=== PATIENT | female | born 1970 | race Caucasian/White ===

== ENCOUNTER 2017-07-30 16:43 | Emergency (ER) | payer BC ==
[2017-07-30 17:05] VITALS: BMI 24.1
[2017-07-30] MEDS ORDERED: ONDANSETRON 4 MG/2 ML VIAL IVPUSH ONE (17:06)
[2017-07-30] MEDS ORDERED: SODIUM CHLORIDE 1,000 ML IV STA (17:06)
--- NOTE | 2017-07-30 17:07 | PDOC ---
Rapid Medical Evaluation Time Seen by Provider: 07/30/17 16:44 Medical Evaluation: Allergies Allergy/AdvReac Type Severity Reaction Status Date / Time No Known Drug Allergies Allergy Verified 08/29/14 06:33 07/30/17 17:00 The patient presents with a chief complaint of: Stomach pain since April. Worsening over the past three months. C/o LUQ pain and today feels like burning up the throat and reports nausea. Took pantoprazole this morning. No vomiting today. Saw Dr. Pike yesterday, has planned endoscopy. I have performed a brief in-person evaluation of this patient; Pertinent physical exam findings: Epigastric pain, Tachycardia to 108. I have ordered the following: CBC, CMP, Lipase, Pt/INR, UA, urine preg. IVF, Zofran The patient will proceed to the ED for further evaluation. Discharge Disposition - Discharge Dispostion Last Admission D/C Date: 08/31/14 - Referrals Referrals: STAFF,NOT ON [Primary Care Provider] - - Patient Instructions - Post Discharge Activity
--- NOTE | 2017-07-30 17:09 | PDOC ---
History of Present Illness - General History Source: Patient Exam Limitations: No Limitations - History of Present Illness Initial Comments: 07/30/17 17:32 The patient is a 47 year old female with history of GERD who presents to the ED complaining of approximately approximately 2.5 months of ongoing epigastric pain , burning in nature, with radiation up the sternum with associated nausea. She states she has been seeing her PCP and GI for this pain and taking Protonix. Today, she took her Protonix this morning. She ate eggs for breakfast and subsequently noticed worsening of her pain throughout the day with associated nausea. No vomiting or diarrhea. No melena or hematochezia. No fever or chills. <Anali Ramires - Last Filed: 07/30/17 17:32> <Yenifer Glass - Last Filed: 07/30/17 18:43> - General Chief Complaint: Pain Stated Complaint: STOMACH PAIN Time Seen by Provider: 07/30/17 16:44 Past History <Anali Ramires - Last Filed: 07/30/17 17:32> - Past Medical History Anemia: No Asthma: No Cancer: No Cardiac Disorders: No CVA: No COPD: No CHF: No Dementia: No Diabetes: No GI Disorders: Yes (ACID REFLUX) Disorders: No HTN: No Hypercholesterolemia: No Liver Disease: No Seizures: No Thyroid Disease: No Other medical history: osteopenia - Surgical History Abdominal Surgery: No Appendectomy: No Cardiac Surgery: No Cholecystectomy: No Lung Surgery: No Neurologic Surgery: No Orthopedic Surgery: No - Suicide/Smoking/Psychosocial Hx Smoking History: Never smoked Have you smoked in the past 12 months: No Information on smoking cessation initiated: No Hx Alcohol Use: No Drug/Substance Use Hx: No Substance Use Type: None Hx Substance Use Treatment: No <Yenifer Glass - Last Filed: 07/30/17 18:43> - Past Medical History Allergies/Adverse Reactions: Allergies Allergy/AdvReac Type Severity Reaction Status Date / Time No Known Drug Allergies Allergy Verified 07/30/17 17:00 Home Medications: Ambulatory Orders Ibuprofen/Pseudoephedrine HCl [Advil Cold & Sinus Caplet] 1 each PO PRN Sucralfate [Carafate -] 1 gm PO QID #28 tablet 07/30/17 Review of Systems - Review of Systems Able to Perform ROS?: Yes Comments:: 07/30/17 17:35 GENERAL/CONSTITUTIONAL: No fever or chills. No weakness. HEAD, EYES, EARS, NOSE AND THROAT: No change in vision. No ear pain or discharge. No sore throat. GASTROINTESTINAL: +Epigastric pain, nausea. No vomiting, diarrhea or constipation. GENITOURINARY: No dysuria, frequency, or change in urination. CARDIOVASCULAR: No chest pain or shortness of breath. RESPIRATORY: No cough, wheezing, or hemoptysis. MUSCULOSKELETAL: No joint or muscle swelling or pain. No neck or back pain. SKIN: No rash NEUROLOGIC: No headache, vertigo, loss of consciousness, or change in strength/ sensation. ENDOCRINE: No increased thirst. No abnormal weight change. HEMATOLOGIC/LYMPHATIC: No anemia, easy bleeding, or history of blood clots. ALLERGIC/IMMUNOLOGIC: No hives or skin allergy. <Anali Ramires - Last Filed: 07/30/17 17:32> *Physical Exam - Vital Signs Last Vital Signs Temp Pulse Resp BP Pulse Ox 97.1 F L 106 H 18 114/70 100 07/30/17 17:01 07/30/17 17:01 07/30/17 17:01 07/30/17 17:01 07/30/17 17:01 - Physical Exam Comments: 07/30/17 17:36 Constitutional: Awake, alert, oriented. No acute distress. Head: Normocephalic. Atraumatic Eyes: PERRL. EOMI. Conjunctivae are not pale. ENT: Mucous membranes are moist and intact. Posterior pharynx without exudates or erythema. Uvula midline. Neck: Supple. Full ROM. No lymphadenopathy. Cardiovascular: Regular rate. Regular rhythm. S1, S2 regular. Distal pulses are 2+ and symmetric. Pulmonary/Chest: No evidence of respiratory distress. Clear to auscultation bilaterally No wheezing, rales or rhonchi. Abdominal: +Mild epigastric and RUQ pain. Negatibe Cardoza's. Soft and non- distended. No rebound, guarding or rigidity. No organomegaly. No palpable masses. Good bowel sounds. Back: No CVA tenderness. Musculoskeletal: No edema. No cyanosis. No clubbing. Full range of motion in all extremities. Nocalf tenderness. Radial/pedal pulses are intact and 2+ bilaterally Skin: Skin is warm and dry. No petechiae. No purpura. Neurological: Alert and oriented to person, place, and time. Cranial nerves II -XII are grossly intact. Normal speech. Strength is grossly symmetric. No sensory deficits. Psychiatric: Good eye contact. Normal interaction, affect and behavior. <Anali Ramires - Last Filed: 07/30/17 17:32> - Vital Signs Last Vital Signs Temp Pulse Resp BP Pulse Ox 97.1 F L 106 H 18 114/70 100 07/30/17 17:01 07/30/17 17:01 07/30/17 17:01 07/30/17 17:01 07/30/17 17:01 <Yenifer Glass - Last Filed: 07/30/17 18:43> ED Treatment Course - LABORATORY CBC & Chemistry Diagram: 07/30/17 17:18 07/30/17 17:18 <Anali Ramires - Last Filed: 07/30/17 17:32> - LABORATORY CBC & Chemistry Diagram: 07/30/17 17:18 07/30/17 17:18 <Yenifer Glass - Last Filed: 07/30/17 18:43> Medical Decision Making - Medical Decision Making 07/30/17 17:44 47yo female with 3m hx of epigastric abd pain -scheduled for EGD - on Aug [address] Pike -will check labs, RUQ u/s -suspect PUD vs gastritis vs gallstones vs pancreatitis -will give ivf hydration, gi cocktail, zofran -will monitor and reassess -pt is nontoxic in appearance 07/30/17 18:39 pt feeling much better pain improved stable for d/c to home will start carafate recommended dietary changes and pt is scheduled for egd on 08/12 <Yenifer Glass - Last Filed: 07/30/17 18:43> *DC/Admit/Observation/Transfer - Attestations Scribe Attestion: 07/30/17 17:37 Documentation prepared by Anali Ramires, acting as infertility medical assistant for Yenifer Glass DO. <Anali Ramires - Last Filed: 07/30/17 17:32> - Discharge Dispostion Admit: No - Attestations Physician Attestion: 07/30/17 18:43 I, Dr. Yenifer Glass, DO, attest that this document has been prepared under my direction and personally reviewed by me in its entirety. I further attest, that it accurately reflects all work, treatment, procedures and medical decision -making performed by me. <Yenifer Glass - Last Filed: 07/30/17 18:43> Diagnosis at time of Disposition: Epigastric pain - Discharge Dispostion Disposition: HOME Condition at time of disposition: Stable - Prescriptions Prescriptions: Sucralfate [Carafate -] 1 gm PO QID #28 tablet - Referrals Referrals: STAFF,NOT ON [Primary Care Provider] - - Patient Instructions Printed Discharge Instructions: DI for Epigastric Pain Additional Instructions: Please take all meds as prescribed. Please keep your appointment for your EGD as scheduled. Please return to the ED with any further complaints. Please also follow up with your PMD. - Post Discharge Activity
[2017-07-30] MEDS ORDERED: ONDANSETRON 4 MG/2 ML VIAL ONE (17:30)
[2017-07-30 17:32] LABS: BASO % 0.3 % (0-2.0); EOS % 0.4 % (0-4.5); HEMATOCRIT 42.6 % (32.4-45.2); HEMOGLOBIN 14.1 GM/dL (10.7-15.3); LYMPH % 7.4 % (8-40); MCH 26.9 pg (25.7-33.7); MEAN CELL VOLUME 81.6 fl (80-96); MEAN PLT VOLUME 7.7 fl (7.5-11.1); MONO % 5.4 % (3.8-10.2); NEUT % 86.5 % (42.8-82.8); PLATELET COUNT 291 K/MM3 (134-434); RBC 5.22 M/mm3 (3.60-5.2); RDW 13.7 % (11.6-15.6); WHITE BLOOD COUNT 8.5 K/mm3 (4.0-10.0)
[2017-07-30] MEDS ORDERED: MAG HYDROX/AL HYDROX/SIMETH 30 ML UNIT-DOSE CUP PO ONE (17:33)
[2017-07-30] MEDS ORDERED: LIDOCAINE VISCOUS 2% ORAL/TOP 20 ML UNIT-DOSE CUP MM ONE (17:33)
[2017-07-30] MEDS ORDERED: FAMOTIDINE 20 MG/50 ML IVPB 20 MG/50 ML MG IVPB ONE ×2 (17:33→17:39)
[2017-07-30] MEDS ORDERED: LIDOCAINE VISCOUS 2% ORAL/TOP 20 ML UNIT-DOSE CUP ONE (17:39)
[2017-07-30] MEDS ORDERED: MAG HYDROX/AL HYDROX/SIMETH 30 ML UNIT-DOSE CUP ONE (17:39)
[2017-07-30 17:46] LABS: INR 1.04 (0.82-1.09); PROTHROMBIN TIME (PATIENT) 11.7 SEC (9.98-11.88)
[2017-07-30 18:10] LABS: ALK PHOS 91 U/L (45-117); ANION GAP 11 (8-16); BILIRUBIN,TOTAL 0.6 mg/dL (0.2-1.0); BLOOD UREA NITROGEN 16 mg/dL (7-18); CALCIUM 8.9 mg/dL (8.5-10.1); CHLORIDE 104 mmol/L (98-107); CO2 24 mmol/L (21-32); CREATININE 0.6 mg/dL (0.55-1.02); GLUCOSE,RANDOM 85 mg/dL (74-106); SGOT/AST 19 U/L (15-37); SGPT/ALT 22 U/L (12-78); SODIUM 139 mmol/L (136-145); TOT PROT 7.7 g/dl (6.4-8.2)
[2017-07-30 18:43] VITALS: BP 123/62; PULSE 82; TEMP 98.6
== END 2017-07-30 18:49 | disposition home or self-care (01) ==
LOC: JER 16:43
PROC: 3E0337Z Introduction of Electrolytic and Water Balance Substance into Peripheral Vein, Percutaneous Approach (ICD-10-PCS; principal; 2017-07-30)
PROC: 3E033GC Introduction of Other Therapeutic Substance into Peripheral Vein, Percutaneous Approach (ICD-10-PCS; 2017-07-30)
PROC: 3E033GC Introduction of Other Therapeutic Substance into Peripheral Vein, Percutaneous Approach (ICD-10-PCS; 2017-07-30)
DX: R10.13 Epigastric pain (principal); K21.9 Gastro-esophageal reflux disease without esophagitis
CPT/HCPCS: 36415; 80053; 83690; 85025; 85610; 99282-25